=== PATIENT | male | born 1955 | race Caucasian/White ===

== ENCOUNTER 2020-06-11 12:47 | Outpatient (REF) | payer MEDICARE, SELFPAY | END 2020-06-11 12:48 | disposition home or self-care (01) | LOC: HO.LAB 12:47 | PROVIDERS: PCP Internal Medicine; Visit Provider Internal Medicine | DX: Z20.828 Contact with and (suspected) exposure to other viral communicable diseases (principal) | CPT/HCPCS: 87635 ==

== ENCOUNTER 2020-08-24 08:56 | Outpatient (REF) | payer MEDICARE, SELFPAY | END 2020-08-24 08:57 | disposition home or self-care (01) | LOC: HO.LAB 08:56 | PROVIDERS: PCP Internal Medicine; Visit Provider Internal Medicine | DX: Z20.828 Contact with and (suspected) exposure to other viral communicable diseases (principal) | CPT/HCPCS: C9803; U0003 ==